=== PATIENT | male | born 1970 | race Caucasian/White ===

== ENCOUNTER 2017-12-12 19:26 | Emergency (ER) | payer BC, OTHER ==
[2017-12-12 19:40] VITALS: BMI 36.9
--- NOTE | 2017-12-12 20:07 | DR.GENAD ---
HPI - PCP Primary Care Physician: SHANNAN - HPI Comment HPI Comment: HAVE STARTED RESOLVING ALREADY. - Complaint/Symptoms Chief Complaint Doctors Comments: PATIENT WITH HISTORY OF MS. PATIENT HAVE WEAKNESS RT SIDE WITH TINGLING USUALLY. TONIGHT THIS IS WORSE. Chief Complaint:: TINGLING WEAKNESS RIGHT ARM AND IN HEAD Self Treatment fo Chief Complaint: ASA PRIOR TO ARRIVAL - Nurses notes reviewed Nurses Notes Review: Yes - Source History Provided: Patient, Family Member - Mode of Arrival Mode of Arrival: Wheelchair - Timing Onset of Chief Complaint: 12/12/17 Came on: Suddenly - Duration Duration: Constant Duration: Hours - Severity Severity: Moderate PMH - PMH Past Medical History: Yes Past Medical History: Anemia, Arthritis, Migraines, GERD, Hypertension, Kidney Stones Past Medical History Comment: MS. SYNCOPE Past Surgical History: Yes Surgical History: Cholecystectomy, Ortho Surgery Past Surgical History Comment: TNA. BILAT KNEE. R WRIST. L ELBOW. GASTRECTOMY. HEART CATH (NORMAL) - Family History History of Family Medical Conditions: Yes Family Medical History: Diabetes Mellitus, Cancer, [place], Coronary Artery Disease, Heart Failure, Hypertension - Social History Does patient currently use any type of tobacco product: No Have you used tobacco products in the last 12 months: No Does any household member use tobacco: No Alcohol Use: None Do you use any recreational Drugs:: No Lives With: Spouse Lives Where: Home - infectious screening In the last 2 months have you had wt loss of >10#?: NO Have you had fever, night sweats or hemotysis?: No Have you traveled outside the country in the last 6 months?: No Isolation: Standard ROS - Review of Systems Constitutional: Weakness, Fatigue. 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 ). negative: Eye Pain, Discharge ENTM: negative: Ear Pain, Nose Discharge, Nose Congestion, Throat Pain Respiratoy: Short of Breath (ON EXERTION.). negative: Productive Cough, Non- Productive Cough, Wheezing, Hemoptysis Cardiovascular: Edema (ANKLE EDEMA.). negative: Chest Pain Gastrointestinal/Abdominal: negative: Abdominal Pain, Diarrhea, Nausea, Vomiting Genitourinary: negative: Hematuria Neurological: Headache, Numbness, Paresthesia, Weakness, Problems Walking. negative: Dizziness, Speech Problem Musculoskeletal: Muscle Pain Hematologic/Lymphatic: No Symptoms Reported Endocrine: negative: Flushing All Other Systems: Reviewed and Negative PE - Vital Signs Vitals: Temperature 98.4 F Pulse Rate [Left Brachial] 62 Pulse Rate 64 Respiratory Rate 18 Blood Pressure [Left Arm] 120/73 Blood Pressure 135/90 O2 Sat by Pulse Oximetry 97 - General Limitations: No Limitations General Appearance: Alert - Head Head Exam: Normal Inspection - Eyes Eye exam: Normal Appearance - ENT ENT Exam: Normal External Ear Exam External Ear Exam: Normal External Inspection TM/Canal Exam: Bilateral Normal Mouth Exam: Normal Inspection Throat Exam: Normal Inspection - Neck Neck Exam: Trachea Midline - Chest Chest Inspection: Symmetric Chest Wall Rise - Respiratory Respiratory Exam: Normal Lung Sounds Bilat Respiratory Exam: Bilateral Clear to Auscultation - Cardiovascular Cardiovascular Exam: Regular Rate, Normal Rhythm, Normal Heart Sounds - Abdominal Exam Abdominal Exam: Normal Bowel Sounds, Soft. negative: Tenderness - Extremities Extremities Exam: Tenderness (MUSCLE WEAKNESS) - Back Back Exam: Paraspinal Tenderness - Neurologic Neurological Exam: Alert, Oriented X3, Motor Sensory Deficit (MUSCLE WEAKNESS, RIGHT SIDED PARESTHESIA.) - Psychiatric Psychiatric Exam: Normal Affect, Normal Mood, Anxious - Skin Skin Exam: Erythema MDM - Additional Information Additional Information Obtained From: Family Findings: PINCREASE RT SIDED WEAKNESS, MS, DEHYDRATION, ELECTROLYTE IMBALANCE Course - Treatment Treatment: SEE ORDERS. - Education/Counseling Education/Counseling: Patient, Family, Education Educated On: Diagnosis, Needs for Follow Up ROR - Labs Reviewed Laboratory Results Reviewed?: Yes Result Diagrams: 12/12/17 20:31 12/12/17 20:31 Laboratory: WBC 8.0 X10^3/uL (3.6-10.0) 12/12/17 20:31 RBC 4.26 X10^6/uL (4.7-6.0) L 12/12/17 20:31 Hgb 13.1 g/dL (13.5-18.0) L 12/12/17 20:31 Hct 37.8 % (42.0-54.0) L 12/12/17 20:31 MCV 88.7 fL (80.0-100.0) 12/12/17 20:31 MCH 30.8 pg (27.0-34.0) 12/12/17 20:31 MCHC 34.8 g/dL (33.0-35.0) 12/12/17 20:31 RDW 14.5 % (11.6-16.5) 12/12/17 20:31 Plt Count 245 X10^3/uL (150.0-450.0) 12/12/17 20: MPV 9.5 fL (7.4-11.0) 12/12/17 20:31 Neut % (Auto) 61.2 % (42.0-75.0) 12/12/17 20: Lymph % (Auto) 30.0 % (21.0-51.0) 12/12/17 20:31 [place] % (Auto) 6.1 % (0.0-13.0) 12/12/17 20: Eos % (Auto) 2.1 % (0.9-2.9) 12/12/17 20: Baso % (Auto) 0.6 % (0.2-1.0) 12/12/17 20: Neut # (Auto) 4.9 x10^3/uL (2.2-4.8) H 12/12/17 20:31 Lymph # (Auto) 2.4 X10^3/uL (1.3-2.9) 12/12/17 20:31 [place] # (Auto) 0.5 x10^3/uL (0.3-0.8) 12/12/17 20: Eos # (Auto) 0.2 x10^3/uL (0.0-0.2) 12/12/17 20: Baso # (Auto) 0.1 X10^3/uL (0.0-0.1) 12/12/17 20: Absolute Nucleated RBC 0.1 /100WBC 12/12/17 20: INR Target Range - 12/12/17 20: INR 0.97 (0.8-1.3) 12/12/17 20: APTT 25.7 SECONDS (22.9-36.5) 12/12/17 20: PTT Comment - 12/12/17 20: Sodium 144 mmol/L (136-145) 12/12/17 20: Corrected Sodium TNP 12/12/17 20: Potassium 3.6 mmol/L (3.5-5.1) 12/12/17 20: Chloride 110 mmol/L (98-107) H 12/12/17 20:31 Carbon Dioxide 24.8 mmol/L (21-32) 12/12/17 20:31 BUN 11 mg/dL (7-18) 12/12/17 20:31 Creatinine 1.19 mg/dL (0.70-1.30) 12/12/17 20:31 Est GFR (MDRD) Af Amer > 60 (>60) 12/12/17 20:31 Est GFR (MDRD) Non-Af > 60 (>60) 12/12/17 20:31 Glucose 102 mg/dL (65-99) H 12/12/17 20:31 Calcium 7.8 mg/dL (8.5-10.1) L 12/12/17 20:31 Corrected Calcium TNP 12/12/17 20:31 Total Bilirubin 0.20 mg/dL (0.2-1.0) 12/12/17 20:31 AST 16 Units/L (15-37) 12/12/17 20:31 ALT 22 Units/L (12-78) 12/12/17 20:31 Alkaline Phosphatase 66 Units/L (46-116) 12/12/17 20:31 Total Protein 7.0 g/dL (6.4-8.2) 12/12/17 20:31 Albumin 3.6 g/dL (3.4-5.0) 12/12/17 20:31 Globulin 3.4 g/dL (2.5-4.5) 12/12/17 20:31 Albumin/Globulin Ratio 1.1 Ratio (1.1-2.1) 12/12/17 20:31 - XRAY XRAY Interpreted by: Radiologist XRAY Findings: REPORT DISCUSS WITH PATIENT AND FAMILY. - Diagnosis Discharge Problem: Multiple sclerosis exacerbation, Paresthesia - Discharge Plan Disposition: 01 HOME, SELF-CARE Condition: Stable - Follow ups/Referrals Follow ups/Referrals: ZULEYKA CAMPBELL [Primary Care Provider] - 12/13/17 - Instructions Instructions: Multiple Sclerosis, Paresthesia, [id number] Additional Instructions: RETURN TO ED IF WORSE.
[2017-12-12 20:43] LABS: BASOPHILS # (AUTO) 0.1 X10^3/uL (0.0-0.1); BASOPHILS % (AUTO) 0.6 % (0.2-1.0); EOSINOPHILS # (AUTO) 0.2 x10^3/uL (0.0-0.2); EOSINOPHILS % (AUTO) 2.1 % (0.9-2.9); HEMATOCRIT 37.8 % (42.0-54.0); HEMOGLOBIN 13.1 g/dL (13.5-18.0); LYMPHOCYTES # (AUTO) 2.4 X10^3/uL (1.3-2.9); MEAN CORPUSCULAR HEMOGLOBIN 30.8 pg (27.0-34.0); MEAN CORPUSCULAR HGB CONC 34.8 g/dL (33.0-35.0); MEAN CORPUSCULAR VOLUME 88.7 fL (80.0-100.0); MEAN PLATELET VOLUME 9.5 fL (7.4-11.0); MONOCYTES # (AUTO) 0.5 x10^3/uL (0.3-0.8); MONOCYTES % (AUTO) 6.1 % (0.0-13.0); NEUTROPHILS # (AUTO) 4.9 x10^3/uL (2.2-4.8); NEUTROPHILS % (AUTO) 61.2 % (42.0-75.0); PLATELET COUNT 245 X10^3/uL (150.0-450.0); RED BLOOD COUNT 4.26 X10^6/uL (4.7-6.0); RED CELL DISTRIBUTION WIDTH 14.5 % (11.6-16.5)
--- NOTE | 2017-12-12 20:51 | CT ---
HISTORY: Rule out stroke. Study: CT brain without contrast Comparison: None. Technique: Multiple axial images of the brain were obtained from the skull base to the vertex without administra tion of IV contrast. Dose reduction techniques including Automated Exposure Control (AEC) and adjust ment of mA and kV were utilized. Findings: No acute intraparenchymal hemorrhage or mass can be identified. No extra-axial fluid collections are seen. No alteration in the attenuation of the brain parenchyma can be identified to suggest acute o r subacute ischemic change. The ventricular system is symmetric and nondilated. The extracranial st ructures are grossly unremarkable. IMPRESSION: No acute intracranial pathology. If clinical concern exists for acute ischemia/infarction , MRI of the brain is more sensitive. Reported By:
[2017-12-12 20:52] LABS: ALANINE AMINOTRANSFERASE 22 Units/L (12-78); ALBUMIN 3.6 g/dL (3.4-5.0); ALKALINE PHOSPHATASE 66 Units/L (46-116); ASPARTATE AMINO TRANSFERASE 16 Units/L (15-37); BLOOD UREA NITROGEN 11 mg/dL (7-18); CALCIUM 7.8 mg/dL (8.5-10.1); CARBON DIOXIDE 24.8 mmol/L (21-32); CHLORIDE 110 mmol/L (98-107); CREATININE 1.19 mg/dL (0.70-1.30); SODIUM 144 mmol/L (136-145); eGFR BLACK RACES > 60 (>60); eGFR NON BLACK RACES > 60 (>60)
[2017-12-12 21:20] VITALS: BP 120/73
== END 2017-12-12 21:27 | disposition home or self-care (01) ==
LOC: ER 19:56
DX: G35 Multiple sclerosis (principal); R20.2 Paresthesia of skin; R51 Headache
CPT/HCPCS: 36415; 70450; 80053; 85025; 85610; 85730; 99283; 99284